=== PATIENT | female | born 1940 | race Two or more races ===

== ENCOUNTER 2025-06-24 06:00 | Day surgery (SDC) | payer OTHER ==
[2025-06-25] MEDS ORDERED: FLUMAZENIL 0.5 MG/5 ML ML IV STA (12:30)
[2025-06-25] MEDS ORDERED: ONDANSETRON HCL 2 MG/ML VIAL IV ONE (12:30)
[2025-06-25] MEDS ORDERED: NALOXONE HCL 0.4 MG/ML AMPUL IV STA (12:30)
[2025-06-25] MEDS ORDERED: DIPHENHYDRAMINE HCL 50 MG/ML VIAL 1ML IV ONE (12:30)
[2025-06-25] MEDS ORDERED: fentaNYL CITRATE 50 MCG/ML AMPUL IV PUSH ONE (12:30)
[2025-06-25] MEDS ORDERED: MIDAZOLAM HCL 2 MG/2 ML VIAL IV ONE (12:30)
[2025-06-25] MEDS ORDERED: ENALAPRILAT DIHYDRATE 1.25 MG/ML VIAL IV ONE (12:45)
== END 2025-06-25 13:50 | disposition home or self-care (01) ==
LOC: AMB-ENDOS 06:00
PROVIDERS: ATTEND Colon & Rectal Surgery
DX: K62.5 Hemorrhage of anus and rectum (principal); K52.89 Other specified noninfective gastroenteritis and colitis; K57.30 Diverticulosis of large intestine without perforation or abscess without bleeding; R19.5 Other fecal abnormalities